=== PATIENT | male | born 1995 | race Caucasian/White ===

== ENCOUNTER 2021-09-11 22:12 | Emergency (ER) | payer SELFPAY ==
--- NOTE | 2021-09-11 22:10 | ECG_ITS ---
APPROVED REPORT Exam: Resting ECG HR:86 bpm ECG Measurements Heart Rate 86 AXES PA 131 P 78 QRSd 86 QRS 78 QT 336 T 72 QTc 380 Conclusion SINUS RHYTHM NORMAL ECG UNCONFIRMED REPORT Electronically signed by : Bigg Cooper MD 09/12/2021 20:36:37
[2021-09-11 22:12] VITALS: BP 132/92; PULSE 85; RESP 17; TEMP 36.8; O2SAT 99; BMI 24.8
--- NOTE | 2021-09-11 22:17 | PC.NURSE ---
at BS speaking with pt
--- NOTE | 2021-09-11 22:20 | XR_ITS ---
PROCEDURE INFORMATION: Exam: XR Chest Exam date and time: 09/11/2021 10:40 PM Age: 25 years old Clinical indication: Sternal or substernal pain; Additional info: Chest pain TECHNIQUE: Imaging protocol: Radiologic exam of the chest. Views: 1 view. COMPARISON: No relevant prior studies available. FINDINGS: Lungs: Unremarkable. No consolidation. Pleural spaces: Unremarkable. No pleural effusion. No pneumothorax. Heart/Mediastinum: Unremarkable. No cardiomegaly. Bones/joints: Unremarkable. IMPRESSION: No acute cardiopulmonary process.
[2021-09-11 22:27] LABS: Basophils # 0.1 K/mm3 (0-0.2); Eosinophils # 0.2 K/mm3 (0.0-0.4); Eosinophils % 2.3 % (0.1-12.0); Hematocrit 44.3 % (42.0-52.0); Hemoglobin 14.5 g/dL (14.1-18.0); Lymphocytes # 1.8 K/mm3 (0.7-4.5); Lymphocytes % 20.6 % (10-50); Mean Corpuscular HGB Conc 32.7 g/dL (31.8-35.4); Mean Corpuscular Hemoglobin 30.5 pg (27.0-31.2); Mean Corpuscular Volume 93.2 fl (80-94); Mean Platelet Volume 8.1 fl (7.4-10.4); Monocytes # 0.4 K/mm3 (0.1-1.0); Neutrophils # 6.2 K/mm3 (1.8-7.8); Neutrophils % 72.1 % (37.0-80.0); Platelet Count 325 K/mm3 (142-424); Red Blood Count 4.75 M/mm3 (4.60-6.20); Red Cell Distribution Width 12.9 % (11.5-17.5); White Blood Count 8.6 K/mm3 (4.8-10.8)
[2021-09-11 22:32] LABS: Lipase 43 U/L (23-300)
[2021-09-11 22:33] LABS: Alanine Aminotransferase 27 U/L (12-78); Albumin Level 5.1 g/dl (3.5-5.0); Alkaline Phosphatase 90 U/L (38-126); Anion Gap 14.1 mEq/L (5-15); Aspartate Amino Transferase 36 U/L (17-59); Blood Urea Nitrogen 15 mg/dl (9-20); Carbon Dioxide 30 mmol/L (22.0-30.0); Chloride 102 mmol/L (98-107); Estimated Glomerular Filt Rate 93 ml/min (>60); GFR (African American) 112 ML/MIN (>60); Glucose 95 mg/dl (74-100); Potassium 4.1 mmoL/L (3.5-5.1); Sodium 142 mmol/L (136-145); Total Protein,Serum 8.8 g/dl (6.3-8.2)
[2021-09-11 22:36] LABS: Bilirubin,Total < 0.1 mg/dl (0.2-1.3)
[2021-09-11 22:37] LABS: D-Dimer 0.48 ug/mL (0.0-0.5)
[2021-09-11 22:42] LABS: Bilirubin,Direct < 0.1 mg/dl (0.0-0.4)
[2021-09-11 22:47] LABS: Troponin I < 0.01 ng/ml (0.00-0.034)
--- NOTE | 2021-09-11 22:51 | [facility].EDGENADL ---
ED Disposition Clinical Impression: Atypical chest pain Disposition: Home, Self-Care Condition on Discharge: Good Instructions: DI for Atypical Chest Pain Additional Instructions: Please follow-up outpatient with a primary care provider. We are providing you with a list of people accepting patients. Return to the emergency department for any new or worsening symptoms. Referrals: Mandy Monroy APRN [Primary Care Provider] - - Critical Care Critical Care Time: No Attestation: On 09/11/21, the high probability of a clinically significant, sudden or life threatening deterioration of the following system(s) required my full and direct attention, intervention and personal management. The time I documented below is in addition to time spent performing reported procedures but includes the following listed in this critical care notation. Medical Decision Making - [place] Inquiry Pt receiving controlled substance: No Vital Signs: 09/11/21 22:12 09/12/21 00:19 Temperature 98.3 F 98.3 F Temperature Source Oral Oral Pulse Rate 70 Pulse Rate [Right] 85 Respiratory Rate 17 16 Blood Pressure 129/84 Blood Pressure [Right Arm] 132/92 H Blood Pressure Mean [Right Arm] 105 Blood Pressure Source Automatic Cuff Blood Pressure Source [Right Arm] Automatic Cuff Blood Pressure Position Sitting 02 Sat by Pulse Oximetry 99 Oxygen Delivery Method Room Air Room Air - Lab Data Lab Results 09/11/21 22:13: SARS-CoV-2 (PCR) Not detected, Influenza A Untype (PCR) Not detected, Influenza Type B (PCR) Not detected 09/11/21 22:15: WBC 8.6, RBC 4.75, Hgb 14.5, Hct 44.3, MCV 93.2, MCH 30.5, MCHC 32.7, RDW 12.9, Plt Count 325, MPV 8.1, Neut % (Auto) 72.1, Lymph % (Auto) 20.6, [place] % (Auto) 4.0, Eos % (Auto) 2.3, Baso % (Auto) 1.0, Neut # (Auto) 6.2, Lymph # (Auto) 1.8, [place] # (Auto) 0.4, Eos # (Auto) 0.2, Baso # (Auto) 0.1 09/11/21 22:15: D-Dimer 0.48 09/11/21 22:15: Sodium 142, Potassium 4.1, Chloride 102, Carbon Dioxide 30, Anion Gap 14.1, BUN 15, Creatinine 1.00, Estimated GFR 93, Est GFR ( Amer) 112, Glucose 95, Calcium 10.0, Total Bilirubin < 0.1 L, Direct Bilirubin < 0.1, Conjugated Bilirubin 0.0, Indirect Bilirubin 0.0, Unconjugated Bilirubin 0.0, AST 36, ALT 27, Alkaline Phosphatase 90, Troponin I < 0.01, Total Protein 8.8 H, Albumin 5.1 H 09/11/21 22:15: Lipase 43 Result diagrams: 09/11/21 22:15 09/11/21 22:15 Orders (Tests/Meds): ED MEDICATIONS Discontinued Medications Generic Name Dose Route Start Last Admin Trade Name Freq PRN Reason Stop Dose Admin Famotidine 20 mg 09/11/21 22:20 09/11/21 23:34 Famotidine 20mg/2ml Vial IV 09/11/21 22:21 20 mg ONCE ONE Administration Lactated Ringer's 1,000 mls @ 999 mls/hr 09/11/21 22:30 09/11/21 23:34 Lactated Ringer's 1000 Ml Bag IV 09/11/21 23:30 999 mls/hr .Q1H1M MALIK Administration Metoclopramide HCl 5 mg 09/11/21 22:20 09/11/21 23:34 Metoclopramide Hcl 10mg/2ml Vial IVP 09/11/21 22:21 5 mg ONCE ONE Administration Sodium Chloride 8 ml 09/11/21 22:20 Sodium Chloride 0.9% 10ml Vial IV 10/11/21 22:19 NEEDED PRN dilute pepcid Medical Decision Narrative: In summary, this patient is an otherwise healthy 25-year-old male presented to the emergency department for evaluation of 2 episodes of sharp chest pain that resolved after seconds. These occurred while eating barbecue. Differential diagnoses include ACS, dysrhythmia, GERD, esophageal spasms, gastritis, pancreatitis. The patient is clinically well-appearing on physical exam with no complaints at this time. Vitals are normal. Abdominal exam is benign. EKG was obtained that demonstrated normal sinus rhythm with no acute ST changes concerning for ischemia. No dysrhythmias noted. Basic labs were obtained that did not demonstrate any concerning abnormalities. D-dimer and troponins negative. Chest x-ray does not demonstrate any concerning abnormalities. Pat
[2021-09-11 23:50] LABS: Coronavirus 19, PCR Not Detected (NotDetected); Influenza A, PCR Not Detected (NotDetected); Influenza B, PCR Not Detected (NotDetected)
[2021-09-12 00:19] VITALS: BP 129/84; PULSE 70; RESP 16; TEMP 36.8; O2SAT 98
== END 2021-09-12 00:23 | disposition home or self-care (01) ==
PROVIDERS: Emergency Provider Emergency Medicine; PCP Nurse Practitioner Family
DX: R07.89 Other chest pain (principal); Z88.0 Allergy status to penicillin
CPT/HCPCS: 71045; 80048; 80076; 83690; 84484; 85025; 85378; 93005; 96365; 96367; 96375; 99284; C9803; U0003; U0005

== ENCOUNTER → 2021-10-03 09:04 | Outpatient (CLI) | payer OTHER, SELFPAY | LOC: RT 09:06 | PROVIDERS: PCP Family Medicine; Visit Provider Nurse Practitioner | DX: R55 Syncope and collapse (principal); R42 Dizziness and giddiness; R07.89 Other chest pain; R00.2 Palpitations; Z82.49 Family history of ischemic heart disease and other diseases of the circulatory system | CPT/HCPCS: 93270 ==

== ENCOUNTER → 2021-10-04 08:46 | Outpatient (CLI) | payer OTHER, SELFPAY ==
--- NOTE | 2021-10-04 08:47 | CA_ITS ---
APPROVED REPORT Exam: Exercise Treadmill Technologist: Barb Sheikh Ht: 6 ft 0 in Wt: 180 lbs BSA: 2.04 m2 HR: 72 bpm BP: 137/89 mmHg Indications: Chest pain Medical History Medications: Pantoprazole,,,,, Fluoxetine,,,,, Hydroxyzine,,,,, Stress Test Details Test: Pan HR Resting HR: 67 bpm Max Heart Rate (APMHR): 197.450696 bpm Max HR Achieved: 171 bpm Target HR (85% APMHR): 167.428360 bpm % of APMHR: 86.80 Recovery HR: 93 bpm BP Resting BP: 125/80 mmHg Max BP: 170/60 mmHg Recovery BP: 119.0/74.0 mmHg ECG Resting ECG: Normal sinus rhythm, sinus arrhythmia Clinical Exercise duration: 10:29 min Highest Stage Achieved: Exercise capacity: 12.8 METs Stress ECG Conclusion Patient exercised 10:29 into stage 4 Pan Protocol. Symptoms: One episode of fleeting chest pain. Arrhytmias/Ectopy: None ST-T Changes: Normal ST response to exercise. Conclusion: Normal GXT. GXT only (no imaging). Electronically signed by : Jose Pike MD 10/10/2021 09:02:37
== END ==
PROVIDERS: PCP Family Medicine; Visit Provider Nurse Practitioner
DX: R07.89 Other chest pain (principal); R55 Syncope and collapse
CPT/HCPCS: 93017; 93306